=== PATIENT | male | born 1940 | race Caucasian/White ===

== ENCOUNTER 2024-03-20 16:50 | Inpatient (IN) | payer OTHER, MEDICARE ==
[~2024-03-20] VITALS: Ht 188 cm; Wt 101.1 kg
[2024-03-20 17:32] VITALS: PULSE 95; RESP 14; O2SAT 100
[2024-03-20 18:12] LABS: Basophils # (auto) 0 10 ^3/uL (0-0.2); Basophils % (auto) 0.7 % (0.0-2.0); Eosinophils # (auto) 0.3 10 ^3/uL (0-0.8); Eosinophils % (auto) 5.6 % (0.0-7.0); Hematocrit 31.3 % (41.0-53.0); Hemoglobin 10.3 g/dL (13.5-17.5); Lymphocytes # (auto) 0.7 10 ^3/uL (0.4-5.4); Mean Corpuscular Hemoglobin 28.8 pg (28.0-32.0); Mean Corpuscular Volume 87.1 fL (80.0-100.0); Monocytes # (auto) 0.4 10 ^3/uL (0-1.3); Monocytes % (auto) 8.5 % (0.0-12.0); Neutrophils # (auto) 3.7 10 ^3/uL (1.6-8.6); Neutrophils % (auto) 71.2 % (37.0-80.0); Nucleated Red Blood Cells % 0.1 %; Red Blood Cells 3.59 10^6/uL (4.5-5.90); Red Cell Distribution Width 16.2 % (11.8-14.3); White Blood Cell 5.1 10^3/uL (4.4-10.8)
[2024-03-20 18:35] LABS: Alanine Aminotransferase 20 U/L (7-40); Albumin 3.5 g/dL (3.2-4.8); Alkaline Phosphatase 191 U/L (46-116); Anion Gap 4 (5-15); Aspartate Aminotransferase 19 U/L (13-40); BUN/Creatinine Ratio 34.7 (10.0-20.0); Blood Urea Nitrogen 26 mg/dL (9-23); Calcium 9.4 mg/dL (8.5-10.1); Carbon Dioxide 35 mmol/L (20-30); Chloride 101 mmol/L (98-107); Glucose 91 mg/dL (74-106); Potassium 4.3 mmol/L (3.5-5.1); Sodium 140 mmol/L (136-145)
[2024-03-20 18:36] LABS: Bilirubin, Total 0.7 mg/dL (0.2-1.0); Total Protein 6.5 g/dL (5.7-8.2)
[2024-03-20 20:30] VITALS: PULSE 89; RESP 16; O2SAT 97
[2024-03-20 20:39] LABS: Urine Bacteria None Seen /hpf (None Seen)
[2024-03-20 20:49] LABS: Urine Blood Negative /uL (Negative); Urine Clarity Clear (Clear); Urine Color Yellow (Yellow); Urine Hyaline Cast MOD /lpf (0 - 2); Urine Protein, UAD Negative (Negative); Urine Specific Gravity 1.018 (1.001-1.035); Urine Urobilinogen 2 mg/dL (Negative); Urine WBC 1 /hpf (0 - 3)
[2024-03-20] MEDS: SODIUM CHLORIDE 0.9% 1,000 ML IV ONE ×2 (20:50→22:26)
[2024-03-20] MEDS: ALBUMIN 25% 100 ML IV ONE (21:45)
[2024-03-20] MEDS: SODIUM CHLORIDE 0.9% 1,000 ML IVB ONE (21:45)
[2024-03-20 21:57] LABS: Basophils # (auto) 0 10 ^3/uL (0-0.2); Basophils % (auto) 0.5 % (0.0-2.0); Eosinophils # (auto) 0.2 10 ^3/uL (0-0.8); Eosinophils % (auto) 3.8 % (0.0-7.0); Hemoglobin 9.9 g/dL (13.5-17.5); Lymphocytes # (auto) 0.7 10 ^3/uL (0.4-5.4); Mean Corpuscular Hgb Conc. 33.1 g/dL (32.0-36.0); Mean Corpuscular Volume 87.5 fL (80.0-100.0); Monocytes # (auto) 0.5 10 ^3/uL (0-1.3); Monocytes % (auto) 7.5 % (0.0-12.0); Neutrophils # (auto) 4.7 10 ^3/uL (1.6-8.6); Neutrophils % (auto) 76.2 % (37.0-80.0); Nucleated Red Blood Cells % 0.2 %; Red Blood Cells 3.43 10^6/uL (4.5-5.90); Red Cell Distribution Width 16.5 % (11.8-14.3); White Blood Cell 6.1 10^3/uL (4.4-10.8)
[2024-03-20 22:18] LABS: INR 1.09 (0.9-1.15); Partial Thromboplastin Time 25.1 SEC (24.5-34.5); Prothrombin Time 11.5 sec (9.3-11.8)
[2024-03-20] MEDS: PANTOPRAZOLE 40 MG/10 ML VIAL INJ IV ONE (22:27)
[2024-03-20 22:33] LABS: Alanine Aminotransferase 17 U/L (7-40); Alkaline Phosphatase 170 U/L (46-116); Aspartate Aminotransferase 17 U/L (13-40); Calcium 9.5 mg/dL (8.7-10.4); Carbon Dioxide 32 mmol/L (20-30); Chloride 102 mmol/L (98-107)
[2024-03-20 22:34] LABS: Albumin 3.4 g/dL (3.2-4.8); Anion Gap 6 (5-15); Bilirubin, Total 0.9 mg/dL (0.2-1.0); Blood Urea Nitrogen 20 mg/dL (9-23); Glucose 101 mg/dL (74-106); Magnesium 1.8 mg/dL (1.6-2.6); Potassium 4.4 mmol/L (3.5-5.1); Sodium 140 mmol/L (136-145); Total Protein 6.8 g/dL (5.7-8.2)
[2024-03-20] MEDS: PANTOPRAZOLE 40mg/50ML NS AE 50 ML IV ONE (23:30)
[2024-03-20] MEDS: LIDOCAINE VISCOUS 2% 15ML UD MT ONE (23:30)
[2024-03-20] MEDS: HYDROmorphone HCL 2 MG/ML VL/or syr IV ONE (23:30)
[2024-03-20] MEDS: ONDANSETRON HCL 4 MG/2 ML VIAL IV ONE (23:30)
[2024-03-21] VITALS (15 sets, daily range): BP systolic 91–147; BP diastolic 39–77; PULSE 16–115; RESP 12–20; TEMP 97.5–98.5; O2SAT 92–100
[2024-03-21] MEDS: IOHEXOL 350 MG/ML 100ML IJ ONE (00:23)
[2024-03-21] MEDS: SODIUM CHLORIDE 0.9% 1,000 ML IV ONE (02:41)
[2024-03-21] MEDS: OCTREOTIDE ACETATE 100 MCG in SODIUM CHL 0.9% 50 ML IV ONE (02:45)
[2024-03-21] MEDS: OCTREOTIDE ACETATE 500 MCG in SODIUM CHL 0.9% 99 ML IV SCH (02:45)
[2024-03-21] MEDS: PANTOPRAZOLE 80 MG in SODIUM CHL 0.9% 100 ML IV ONE (02:45)
[2024-03-21 03:45] LABS: Basophils # (auto) 0 10 ^3/uL (0-0.2); Eosinophils # (auto) 0.1 10 ^3/uL (0-0.8); Eosinophils % (auto) 2.6 % (0.0-7.0); Hemoglobin 7.3 g/dL (13.5-17.5); Lymphocytes # (auto) 0.7 10 ^3/uL (0.4-5.4); Mean Corpuscular Volume 87.9 fL (80.0-100.0); Monocytes # (auto) 0.4 10 ^3/uL (0-1.3); Nucleated Red Blood Cells % 0.1 %
[2024-03-21] MEDS ORDERED: MORPHINE SULFATE INJ 2 MG/ml SYRG IV PRN (03:45)
[2024-03-21] MEDS: SODIUM CHLORIDE 0.9% 1,000 ML IV SCH (03:45)
[2024-03-21] MEDS ORDERED: NITROGLYCERIN 0.4 MG SL TAB SL PRN (03:45)
[2024-03-21 03:48] LABS: Basophils % (auto) 0.5 % (0.0-2.0); Hematocrit 22.1 % (41.0-53.0); Lymphocytes % (auto) 15.2 % (10.0-50.0); Mean Corpuscular Hemoglobin 29.1 pg (28.0-32.0); Mean Corpuscular Hgb Conc. 33.1 g/dL (32.0-36.0); Monocytes % (auto) 9.3 % (0.0-12.0); Neutrophils # (auto) 3.3 10 ^3/uL (1.6-8.6); Neutrophils % (auto) 72.4 % (37.0-80.0); Red Blood Cells 2.52 10^6/uL (4.5-5.90); Red Cell Distribution Width 16.6 % (11.8-14.3); White Blood Cell 4.6 10^3/uL (4.4-10.8)
[2024-03-21] MEDS: OCTREOTIDE ACETATE 100 MCG/ML VL ONE (03:54)
[2024-03-21] MEDS: OCTREOTIDE ACETATE 500 MCG/ML VL ONE (03:54)
[2024-03-21] MEDS: PANTOPRAZOLE 40 MG/10 ML VIAL INJ IV ONE (03:55)
[2024-03-21 04:05] LABS: % Iron Saturation 22.3 % (20-55)
[2024-03-21 04:07] LABS: Folate (Folic Acid) 17.63 ng/mL (>5.38)
[2024-03-21] MEDS ORDERED: GABA-1250 PO (11:19)
[2024-03-21] MEDS ORDERED: SIMV10TA20 PO (11:19)
[2024-03-21] MEDS ORDERED: ASPI-543 PO (11:19)
[2024-03-21] MEDS ORDERED: POTA-36 PO (11:19)
[2024-03-21 21:20] LABS: Hematocrit 26.5 % (41.0-53.0); Hemoglobin 8.8 g/dL (13.5-17.5)
[2024-03-22] VITALS (10 sets, daily range): BP systolic 115–155; BP diastolic 55–94; PULSE 98–120; RESP 18–24; TEMP 97.8–98.4; O2SAT 92–99
[2024-03-22] MEDS: MORPHINE SULFATE INJ 2 MG/ml SYRG IV PRN (09:16)
[2024-03-22] MEDS ORDERED: POLYETHYLENE GLYCOL 17 GM PWDR PO PRN (09:30)
[2024-03-22 11:17] LABS: Basophils # (auto) 0 10 ^3/uL (0-0.2); Basophils % (auto) 0.4 % (0.0-2.0); Eosinophils # (auto) 0.1 10 ^3/uL (0-0.8); Eosinophils % (auto) 2.6 % (0.0-7.0); Hematocrit 26.5 % (41.0-53.0); Hemoglobin 8.8 g/dL (13.5-17.5); Lymphocytes # (auto) 0.8 10 ^3/uL (0.4-5.4); Lymphocytes % (auto) 14.4 % (10.0-50.0); Mean Corpuscular Hemoglobin 28.8 pg (28.0-32.0); Mean Corpuscular Hgb Conc. 33.2 g/dL (32.0-36.0); Mean Corpuscular Volume 86.9 fL (80.0-100.0); Monocytes # (auto) 0.5 10 ^3/uL (0-1.3); Monocytes % (auto) 8.4 % (0.0-12.0); Neutrophils # (auto) 4.2 10 ^3/uL (1.6-8.6); Neutrophils % (auto) 74.2 % (37.0-80.0); Nucleated Red Blood Cells % 0.2 %; Red Blood Cells 3.06 10^6/uL (4.5-5.90); Red Cell Distribution Width 16.9 % (11.8-14.3); White Blood Cell 5.6 10^3/uL (4.4-10.8)
[2024-03-22 11:35] LABS: Alanine Aminotransferase 14 U/L (7-40); Albumin 3.3 g/dL (3.2-4.8); Alkaline Phosphatase 136 U/L (46-116); Anion Gap 5 (5-15); Aspartate Aminotransferase 20 U/L (13-40); BUN/Creatinine Ratio 32.7 (10.0-20.0); Bilirubin, Total 0.9 mg/dL (0.2-1.0); Blood Urea Nitrogen 17 mg/dL (9-23); Carbon Dioxide 29 mmol/L (20-30); Chloride 111 mmol/L (98-107); Glucose 133 mg/dL (74-106); Potassium 4.3 mmol/L (3.5-5.1); Total Protein 5.7 g/dL (5.7-8.2)
[2024-03-22 11:58] LABS: Sodium 145 mmol/L (136-145)
[2024-03-22] MEDS ORDERED: fentaNYL CITRATE 100 MCG/2 ML VL ONE (13:58)
[2024-03-22] MEDS ORDERED: MIDAZOLAM HCL 2MG/2ML 2ml VIAL (1mg/ml) ONE (13:58)
[2024-03-22] MEDS ORDERED: PROPOFOL 10 MG/ML 20 ML IV ONE (14:41)
[2024-03-22] MEDS: METOPROLOL SUCCINATE XL 50 MG TAB PO SCH (17:11)
[2024-03-22] MEDS: DOCUSATE SOD 100 MG CAP PO SCH (17:11)
[2024-03-23] VITALS (8 sets, daily range): BP systolic 125–146; BP diastolic 61–86; PULSE 92–113; RESP 18–20; TEMP 97.7–98.9; O2SAT 94–99
[2024-03-23] MEDS: ONDANSETRON HCL 4 MG/2 ML VIAL IV PRN (04:27)
[2024-03-23 06:02] LABS: Basophils # (auto) 0 10 ^3/uL (0-0.2); Basophils % (auto) 0.4 % (0.0-2.0); Eosinophils # (auto) 0.2 10 ^3/uL (0-0.8); Eosinophils % (auto) 2.6 % (0.0-7.0); Hematocrit 26.3 % (41.0-53.0); Hemoglobin 8.6 g/dL (13.5-17.5); Lymphocytes # (auto) 0.9 10 ^3/uL (0.4-5.4); Lymphocytes % (auto) 11.5 % (10.0-50.0); Mean Corpuscular Hemoglobin 28.7 pg (28.0-32.0); Mean Corpuscular Hgb Conc. 32.8 g/dL (32.0-36.0); Mean Corpuscular Volume 87.5 fL (80.0-100.0); Monocytes # (auto) 0.7 10 ^3/uL (0-1.3); Neutrophils % (auto) 76.5 % (37.0-80.0); Nucleated Red Blood Cells % 0.1 %; Red Blood Cells 3.01 10^6/uL (4.5-5.90); Red Cell Distribution Width 16.9 % (11.8-14.3); White Blood Cell 7.9 10^3/uL (4.4-10.8)
[2024-03-23 06:18] LABS: Chloride 110 mmol/L (98-107); Potassium 3.9 mmol/L (3.5-5.1); Sodium 146 mmol/L (136-145)
[2024-03-23 06:19] LABS: Anion Gap 5 (5-15); Carbon Dioxide 31 mmol/L (20-30)
[2024-03-23 06:20] LABS: Calcium 9.3 mg/dL (8.5-10.1)
[2024-03-23 06:24] LABS: Glucose 124 mg/dL (74-106)
[2024-03-23 06:25] LABS: Blood Urea Nitrogen 12 mg/dL (9-23)
[2024-03-23] MEDS: ALPRAZolam 0.5 MG TAB PO SCH (14:34)
[2024-03-24] VITALS (9 sets, daily range): BP systolic 112–151; BP diastolic 54–77; PULSE 90–112; RESP 12–19; TEMP 97.4–98.3; O2SAT 95–99
[2024-03-24] MEDS: FUROSEMIDE 40 MG/4 ML VIAL IV ONE (04:32)
[2024-03-24 06:25] LABS: Prostate Specific Antigen 2.19 ng/mL (0.0-4.0)
[2024-03-24] MEDS: FUROSEMIDE 20 MG/2 ML VIAL IV SCH (12:46)
[2024-03-24] MEDS: guaiFENesin-DM 100/10mg/5ml SYR PO PRN (12:50)
[2024-03-24] MEDS ORDERED: BUM1T PO (12:56)
[2024-03-25] VITALS (12 sets, daily range): BP systolic 123–146; BP diastolic 54–79; PULSE 89–108; RESP 18–21; TEMP 97.7–98.4; O2SAT 91–100
[2024-03-25 06:33] LABS: Basophils # (auto) 0 10 ^3/uL (0-0.2); Basophils % (auto) 0.2 % (0.0-2.0); Eosinophils # (auto) 0.2 10 ^3/uL (0-0.8); Eosinophils % (auto) 3.2 % (0.0-7.0); Hematocrit 26.2 % (41.0-53.0); Hemoglobin 8.5 g/dL (13.5-17.5); Lymphocytes # (auto) 0.4 10 ^3/uL (0.4-5.4); Lymphocytes % (auto) 6.7 % (10.0-50.0); Mean Corpuscular Hemoglobin 28.7 pg (28.0-32.0); Mean Corpuscular Hgb Conc. 32.2 g/dL (32.0-36.0); Mean Corpuscular Volume 89.1 fL (80.0-100.0); Monocytes # (auto) 0.6 10 ^3/uL (0-1.3); Monocytes % (auto) 9.6 % (0.0-12.0); Neutrophils % (auto) 80.3 % (37.0-80.0); Red Blood Cells 2.95 10^6/uL (4.5-5.90); Red Cell Distribution Width 16.9 % (11.8-14.3); White Blood Cell 6.2 10^3/uL (4.4-10.8)
[2024-03-25] MEDS: POLYETHYLENE GLYCOL 17 GM PWDR PO SCH (11:08)
[2024-03-25] MEDS: IPRATROPIUM BROM 0.5 MG/2.5ML INH SOL NEB SCH (12:12)
[2024-03-25] MEDS: ALBUTEROL SULF 2.5 MG/0.5ML(0.5%) NEB SOLN NEB SCH (12:12)
[2024-03-25 13:02] LABS: Carcinoembryonic Antigen 1.51 ng/mL (<=5.0)
[2024-03-25] MEDS: PIPERACILLIN-TAZOB 3.375GM 100 ML IV ONE (17:13)
[2024-03-25] MEDS: PIPERACILLIN-TAZOB 3.375GM 100 ML IV SCH (22:01)
[2024-03-25] MEDS: LINEZOLID 600MG/300ML 300 ML IV SCH (22:01)
[2024-03-26] VITALS (15 sets, daily range): BP systolic 131–167; BP diastolic 67–87; PULSE 98–110; RESP 17–23; TEMP 97.3–98.6; O2SAT 94–100
[2024-03-26] MEDS: IOHEXOL 300 MG/ML 100ML BOTTLE IJ ONE (10:43)
[2024-03-26] MEDS: ACETYLCYSTEINE 10 %(100MG/ML) SOL 4ML NEB SCH (11:22)
[2024-03-26] MEDS: LEVALBUTEROL HCL 1.25 MG/3 ML NEB NEB SCH (11:22)
[2024-03-26] MEDS: Ensure Enlive Chocolate 8oz Bottle PO SCH (12:00)
[2024-03-26 12:08] LABS: Basophils # (auto) 0 10 ^3/uL (0-0.2); Basophils % (auto) 0.5 % (0.0-2.0); Eosinophils # (auto) 0.2 10 ^3/uL (0-0.8); Eosinophils % (auto) 2.8 % (0.0-7.0); Hematocrit 25.8 % (41.0-53.0); Hemoglobin 8.6 g/dL (13.5-17.5); Lymphocytes # (auto) 0.4 10 ^3/uL (0.4-5.4); Lymphocytes % (auto) 7.6 % (10.0-50.0); Mean Corpuscular Hemoglobin 29.6 pg (28.0-32.0); Mean Corpuscular Hgb Conc. 33.5 g/dL (32.0-36.0); Mean Corpuscular Volume 88.4 fL (80.0-100.0); Monocytes # (auto) 0.5 10 ^3/uL (0-1.3); Monocytes % (auto) 9.1 % (0.0-12.0); Neutrophils # (auto) 4.6 10 ^3/uL (1.6-8.6); Nucleated Red Blood Cells % 0.1 %; Red Blood Cells 2.91 10^6/uL (4.5-5.90); Red Cell Distribution Width 16.3 % (11.8-14.3); White Blood Cell 5.7 10^3/uL (4.4-10.8)
[2024-03-26 12:13] LABS: Chloride 105 mmol/L (98-107); Potassium 3.4 mmol/L (3.5-5.1); Sodium 145 mmol/L (136-145)
[2024-03-26 12:14] LABS: Anion Gap 1 (5-15); Carbon Dioxide 39 mmol/L (20-30)
[2024-03-26 12:15] LABS: Calcium 9.1 mg/dL (8.5-10.1)
[2024-03-26 12:19] LABS: BUN/Creatinine Ratio 21.8 (10.0-20.0); Blood Urea Nitrogen 12 mg/dL (9-23); Glucose 151 mg/dL (74-106)
[2024-03-26 21:01] LABS: Urine Bacteria None Seen /hpf (None Seen)
[2024-03-26 21:20] LABS: Urine Blood 3+ /uL (Negative); Urine Clarity Turbid (Clear); Urine Color Yellow (Yellow); Urine Protein, UAD 1+ (Negative); Urine Specific Gravity 1.048 (1.001-1.035); Urine Urobilinogen 2 mg/dL (Negative); Urine WBC 34 /hpf (0 - 3)
[2024-03-26] MEDS: LACTULOSE 20Gm/30ML SOLN PO SCH (21:49)
[2024-03-27] VITALS (17 sets, daily range): BP systolic 136–163; BP diastolic 71–90; PULSE 96–113; RESP 17–22; TEMP 97.5–99; O2SAT 91–100
[2024-03-27] MEDS: ENOXAPARIN SOD 40 MG/0.4 ML SYRINGE SC SCH (10:41)
[2024-03-27] MEDS: METOPROLOL SUCCINATE XL 50 MG TAB PO SCH (10:41)
[2024-03-27] MEDS: FUROSEMIDE 20 MG/2 ML VIAL IV SCH (10:42)
[2024-03-27] MEDS: POTASSIUM CHLORIDE 40 MEQ, LIDOCAINE 1% (LOCAL ANESTH.) 4 ML in SODIUM CHL 0.9% 250 ML IV ONE (11:29)
[2024-03-27] MEDS: MAGNESIUM SULFATE 1GM/100ML 100 ML IV ONE (13:12)
[2024-03-28] VITALS (15 sets, daily range): BP systolic 142–157; BP diastolic 80–93; PULSE 98–115; RESP 16–20; TEMP 97.6–98.5; O2SAT 92–100
[2024-03-28] MEDS: BISACODYL 10 MG RECT SUPP PR PRN (05:08)
[2024-03-28 07:02] LABS: Chloride 99 mmol/L (98-107); Potassium 3.1 mmol/L (3.5-5.1); Sodium 145 mmol/L (136-145)
[2024-03-28 07:03] LABS: Calcium 8.9 mg/dL (8.5-10.1)
[2024-03-28 07:08] LABS: BUN/Creatinine Ratio 15.7 (10.0-20.0); Blood Urea Nitrogen 8 mg/dL (9-23); Glucose 171 mg/dL (74-106)
[2024-03-28 07:30] LABS: Hematocrit 27.6 % (41.0-53.0); Hemoglobin 9.2 g/dL (13.5-17.5); Mean Corpuscular Hemoglobin 29.4 pg (28.0-32.0); Mean Corpuscular Hgb Conc. 33.2 g/dL (32.0-36.0); Mean Corpuscular Volume 88.5 fL (80.0-100.0); Red Blood Cells 3.12 10^6/uL (4.5-5.90); Red Cell Distribution Width 16.4 % (11.8-14.3); White Blood Cell 7.4 10^3/uL (4.4-10.8)
[2024-03-28 07:33] LABS: Basophils % (manual) 0 (0.0-2.0); Blast Cells 0; Metamyelocytes % 0; Myelocytes % 0; Promyelocytes % 0; Reactive Lymphocytes 0
[2024-03-28 07:37] LABS: Anion Gap 5.99999 (5-15)
[2024-03-28 07:39] LABS: Carbon Dioxide > 40 mmol/L (20-30)
[2024-03-28 08:42] LABS: Band Neutrophils % (manual) 2; Eosinophils % (manual) 2 (0-7); Lymphocytes % (manual) 12 (10.0-50.0); Monocytes % (manual) 4 (0-12); Platelet Estimate Adequate
[2024-03-28] MEDS: POTASSIUM CHLORIDE 40 MEQ, LIDOCAINE 1% (LOCAL ANESTH.) 4 ML in SODIUM CHL 0.9% 250 ML IV ONE (13:34)
[2024-03-28] MEDS: PANTOPRAZOLE 40 MG/10 ML VIAL INJ IV ONE (14:17)
[2024-03-28] MEDS: PANTOPRAZOLE 40 MG/10 ML VIAL INJ IV SCH (23:07)
[2024-03-29] VITALS (16 sets, daily range): BP systolic 121–158; BP diastolic 73–97; PULSE 99–122; RESP 17–22; TEMP 97.6–98.4; O2SAT 94–100
[2024-03-29] MEDS: hydrALAZINE HCL 20 MG/ML VL IV PRN (03:21)
[2024-03-29] MEDS: METOPROLOL TARTRATE 1MG/1ML-5ML VIAL IV ONE (04:06)
[2024-03-29 06:04] LABS: Calcium 9.2 mg/dL (8.7-10.4); Chloride 98 mmol/L (98-107); Potassium 3.2 mmol/L (3.5-5.1); Sodium 144 mmol/L (136-145)
[2024-03-29 06:10] LABS: Blood Urea Nitrogen 9 mg/dL (9-23); Glucose 146 mg/dL (74-106); Magnesium 1.7 mg/dL (1.6-2.6)
[2024-03-29 06:25] LABS: Anion Gap 5.99999 (5-15); Carbon Dioxide > 40 mmol/L (20-30)
[2024-03-29 10:48] LABS: Base Excess 15.1 mmol/L (-2.0-2.0)
[2024-03-29] MEDS: METOPROLOL SUCCINATE XL 50 MG TAB PO SCH (10:54)
[2024-03-29] MEDS: POTASSIUM CHLORIDE 40 MEQ, LIDOCAINE 1% (LOCAL ANESTH.) 4 ML in SODIUM CHL 0.9% 250 ML IV ONE (11:55)
[2024-03-29] MEDS: MAGNESIUM SULFATE 1GM/100ML 100 ML IV ONE (16:06)
[2024-03-30] VITALS (14 sets, daily range): BP systolic 133–153; BP diastolic 61–94; PULSE 90–106; RESP 18–22; TEMP 98.1–98.5; O2SAT 93–100
[2024-03-30 07:03] LABS: Basophils # (auto) 0 10 ^3/uL (0-0.2); Basophils % (auto) 0.3 % (0.0-2.0); Eosinophils # (auto) 0.2 10 ^3/uL (0-0.8); Eosinophils % (auto) 3.2 % (0.0-7.0); Hematocrit 27.7 % (41.0-53.0); Hemoglobin 9.1 g/dL (13.5-17.5); Lymphocytes # (auto) 0.4 10 ^3/uL (0.4-5.4); Lymphocytes % (auto) 6.5 % (10.0-50.0); Mean Corpuscular Hgb Conc. 32.9 g/dL (32.0-36.0); Mean Corpuscular Volume 88.2 fL (80.0-100.0); Monocytes # (auto) 0.7 10 ^3/uL (0-1.3); Monocytes % (auto) 9.4 % (0.0-12.0); Neutrophils # (auto) 5.6 10 ^3/uL (1.6-8.6); Neutrophils % (auto) 80.6 % (37.0-80.0); Nucleated Red Blood Cells % 0.1 %; Red Blood Cells 3.14 10^6/uL (4.5-5.90); Red Cell Distribution Width 16.9 % (11.8-14.3); White Blood Cell 6.9 10^3/uL (4.4-10.8)
[2024-03-30 07:19] LABS: Calcium 9.2 mg/dL (8.7-10.4); Chloride 98 mmol/L (98-107); Potassium 3.7 mmol/L (3.5-5.1); Sodium 143 mmol/L (136-145)
[2024-03-30 07:25] LABS: Blood Urea Nitrogen 9 mg/dL (9-23); Glucose 111 mg/dL (74-106)
[2024-03-30 07:37] LABS: Anion Gap 4.99999 (5-15)
[2024-03-30 07:38] LABS: Carbon Dioxide > 40 mmol/L (20-30)
[2024-03-30] MEDS: cefTRIAXone 1GM/50ML D5W 50 ML IV SCH (10:00)
[2024-03-30] MEDS: FUROSEMIDE 20 MG/2 ML VIAL IV SCH (10:06)
[2024-03-30] MEDS: SPIRONOLACTONE 25 MG TAB PO SCH (10:14)
[2024-03-30] MEDS: METOPROLOL SUCCINATE XL 50 MG TAB PO SCH (10:14)
[2024-03-31] VITALS (16 sets, daily range): BP systolic 107–157; BP diastolic 56–91; PULSE 90–104; RESP 16–22; TEMP 97.9–98.4; O2SAT 95–100
[2024-03-31] MEDS: ACETYLCYSTEINE 20%(200MG/ML) SOL 4ML NEB SCH (18:31)
[2024-04-01] VITALS (16 sets, daily range): BP systolic 129–144; BP diastolic 73–89; PULSE 94–104; RESP 18–22; TEMP 98–98.9; O2SAT 92–99
[2024-04-01 12:08] LABS: Basophils # (auto) 0 10 ^3/uL (0-0.2); Basophils % (auto) 0.3 % (0.0-2.0); Eosinophils # (auto) 0.1 10 ^3/uL (0-0.8); Eosinophils % (auto) 1.9 % (0.0-7.0); Hematocrit 30.2 % (41.0-53.0); Hemoglobin 9.6 g/dL (13.5-17.5); Lymphocytes # (auto) 0.4 10 ^3/uL (0.4-5.4); Lymphocytes % (auto) 5.4 % (10.0-50.0); Mean Corpuscular Hemoglobin 28.2 pg (28.0-32.0); Mean Corpuscular Volume 88.3 fL (80.0-100.0); Monocytes # (auto) 0.5 10 ^3/uL (0-1.3); Monocytes % (auto) 6.3 % (0.0-12.0); Neutrophils # (auto) 6.5 10 ^3/uL (1.6-8.6); Neutrophils % (auto) 86.1 % (37.0-80.0); Nucleated Red Blood Cells % 0.1 %; Red Blood Cells 3.41 10^6/uL (4.5-5.90); Red Cell Distribution Width 17.1 % (11.8-14.3); White Blood Cell 7.5 10^3/uL (4.4-10.8)
[2024-04-01 12:27] LABS: Chloride 97 mmol/L (98-107); Potassium 3.7 mmol/L (3.5-5.1); Sodium 139 mmol/L (136-145)
[2024-04-01 12:28] LABS: Anion Gap 6 (5-15); Carbon Dioxide 36 mmol/L (20-30)
[2024-04-01 12:29] LABS: Calcium 9.1 mg/dL (8.5-10.1)
[2024-04-01 12:33] LABS: Glucose 199 mg/dL (74-106)
[2024-04-01 12:34] LABS: BUN/Creatinine Ratio 18.5 (10.0-20.0); Blood Urea Nitrogen 10 mg/dL (9-23)
[2024-04-02] VITALS (19 sets, daily range): BP systolic 114–148; BP diastolic 59–72; PULSE 89–103; RESP 18–20; TEMP 97.7–98.5; O2SAT 93–100
[2024-04-02] MEDS ORDERED: traMADol HCL 50 MG TAB PO PRN (10:15)
[2024-04-02] MEDS: LINEZOLID 600MG TABLET PO SCH (21:24)
[2024-04-03] VITALS (12 sets, daily range): BP systolic 104–132; BP diastolic 51–68; PULSE 92–102; RESP 16–20; TEMP 36.6; O2SAT 92–100
[2024-04-03] MEDS: FUROSEMIDE 40 MG TAB PO SCH (09:31)
== END 2024-04-03 18:40 | disposition hospice, home (50) | DRG 377 ==
LOC: ER 16:50 → EDBD 16:50 → TELE 03-21 03:51 → TELE-WESTW 03-21 09:57 → TELE-EAST 03-22 04:57
PROVIDERS: ADMIT Nurse Practitioner; ATTEND Nurse Practitioner Acute Care
PROC: 30233N1 Transfusion of Nonautologous Red Blood Cells into Peripheral Vein, Percutaneous Approach (ICD-10-PCS; 2024-03-21)
PROC: 0DB68ZX Excision of Stomach, Via Natural or Artificial Opening Endoscopic, Diagnostic (ICD-10-PCS; 2024-03-22)
PROC: 0DB98ZX Excision of Duodenum, Via Natural or Artificial Opening Endoscopic, Diagnostic (ICD-10-PCS; principal; 2024-03-22 13:54)
DX: K29.71 Gastritis, unspecified, with bleeding (principal); I50.23 Acute on chronic systolic (congestive) heart failure; J15.212 Pneumonia due to Methicillin resistant Staphylococcus aureus; J96.21 Acute and chronic respiratory failure with hypoxia; J90 Pleural effusion, not elsewhere classified; J98.11 Atelectasis; D62 Acute posthemorrhagic anemia; I11.0 Hypertensive heart disease with heart failure; K59.00 Constipation, unspecified; I25.10 Atherosclerotic heart disease of native coronary artery without angina pectoris; N40.0 Benign prostatic hyperplasia without lower urinary tract symptoms; D63.1 Anemia in chronic kidney disease; K44.9 Diaphragmatic hernia without obstruction or gangrene; N28.89 Other specified disorders of kidney and ureter; I48.91 Unspecified atrial fibrillation; Z74.01 Bed confinement status; Z95.2 Presence of prosthetic heart valve; Z51.5 Encounter for palliative care; Z88.2 Allergy status to sulfonamides; Z88.8 Allergy status to other drugs, medicaments and biological substances; Z81.1 Family history of alcohol abuse and dependence; Z79.899 Other long term (current) drug therapy
CPT/HCPCS: 36415; 36430; 36600; 70470; 71045; 71260; 74177; 74181; 76604; 80048; 80053; 81001; 82270; 82378; 82607; 82728; 82746; 82805; 83540; 83550; 83615; 83735; 83880; 84153; 84443; 84484; 85007; 85014; 85018; 85025; 85027; 85045; 85610; 85730; 86850; 86900; 86901; 86920; 87070; 87077; 87086; 87186; 87205; 92507; 92610; 93005; 93306; 94640; 97110; 97163; C9113; G0378; J2001; J2250; J2405; J2470; J2543; J2704; P9047